=== PATIENT | female | born 1970 | race Caucasian/White ===

== ENCOUNTER 2022-04-11 20:35 | Inpatient (IN) | payer BC ==
[2022-04-11] MEDS ORDERED: Ondansetron PF 4 MG/2 ML Vial ONE (20:42)
[2022-04-11] MEDS ORDERED: CEFAZOLIN 1 GM VIAL ONE ×2 (20:42)
[2022-04-11] MEDS ORDERED: Boostrix 0.5 ML (Tdap) VIAL (>/=7 yrs of age) ONE (20:42)
[2022-04-11] MEDS ORDERED: Morphine 4 MG/ML VIAL ONE (20:42)
[2022-04-11 21:23] LABS: #Eosinphils 0.1 thou/uL (0.0-0.7); #Lymphocytes 3.6 thou/uL (1.20-3.40); #Monocytes 0.4 thou/uL (0.11-0.59); #Neutrophils 3.5 thou/uL (1.40-6.50); %Basophils 0.4 % (0.0-1.0); %Eosinophils 1.8 % (0.0-10.0); %Monocytes 5.3 % (0.0-10.0); %Neutrophils 45.4 % (42.0-75.0); Hemoglobin 14.5 g/dL (12.0-16.0); Mean Platelet Volume 7.1 fL (7.4-10.4); Platelet Count 248 10x3/uL (130-400); RBC Distribution Width 11.8 % (11.5-14.5); Red Blood Cell (RBC) Count 4.27 mill/uL (4.20-5.40); White Blood Cell (WBC) Count 7.7 10x3/uL (4.8-10.8)
[2022-04-11] MEDS ORDERED: Ketamine 50 MG/ML (10ML VIAL) ONE (21:23)
[2022-04-11 21:37] LABS: INR-International Normal Ratio 0.8; PTT 27.1 sec (22.9-36.1); Prothrombin Time 11.8 sec (12.0-14.7)
[2022-04-11 21:44] LABS: ALT (SGPT) 33 U/L (8-55); AST (SGOT) 70 U/L (5-34); Albumin 4.2 g/dL (3.5-5.0); Alkaline Phosphatase 100 U/L (40-110); Anion Gap 17 mmol/L (10-20); BUN (Urea Nitrogen) 15 mg/dL (9.8-20.1); Bilirubin, Total 0.3 mg/dL (0.2-1.2); Calc. Creatinine Clearance 0 mL/min (70-130); Calcium 8.9 mg/dL (7.8-10.44); Carbon Dioxide 17 mmol/L (22-29); Chloride 107 mmol/L (98-107); Estimated GFR 99; Globulin 3.1 g/dL (2.4-3.5); Glucose 93 mg/dL (70-105); Potassium 3.5 mmol/L (3.5-5.1); Protein, Total 7.3 g/dL (6.0-8.3); Sodium 137 mmol/L (136-145)
[2022-04-11] MEDS ORDERED: Morphine 2 MG/ML VIAL SLOW IVP PRN (21:59)
[2022-04-11] MEDS ORDERED: Ondansetron ODT 4 MG TAB PO PRN (21:59)
[2022-04-11] MEDS ORDERED: Dextrose 5% in Water 1,000 ML IV PRN (21:59)
[2022-04-11] MEDS ORDERED: TETANUS, DIPHTHERIA TOX,ADULT (TDVAX) 0.5 ML VIAL IM ONE (21:59)
[2022-04-11] MEDS ORDERED: Ondansetron PF 4 MG/2 ML Vial IVP PRN (21:59)
[2022-04-11] MEDS ORDERED: Dextrose 50% Abboject 50 ML SYRINGE SLOW IVP PRN (21:59)
[2022-04-11] MEDS ORDERED: hydrALAZINE 20 MG/ML VIAL ONE (22:22)
[2022-04-11] MEDS: Morphine 4 MG/ML VIAL SLOW IVP PRN (23:30)
[2022-04-11 23:46] VITALS: BMI 44.4
[2022-04-12] MEDS: Gabapentin 100 MG CAP PO SCH ×4 (01:11→22:05)
[2022-04-12] MEDS: Sodium Chloride 0.9% 1,000 ML IV SCH ×2 (01:11→06:45)
[2022-04-12] MEDS: Acetaminophen 500 MG TAB PO SCH ×5 (01:12→18:21)
[2022-04-12] MEDS: Ketorolac Tromethamine 30 MG/ML VIAL IVP SCH ×2 (01:12→05:15)
[2022-04-12] MEDS: traMADol HCl 50 MG TAB PO SCH ×4 (01:13→18:20)
[2022-04-12] MEDS: Morphine 4 MG/ML VIAL SLOW IVP PRN ×5 (01:40→22:06)
[2022-04-12 02:00] LABS: SARS-CoV-2 NAA Rapid Test Not Detected (NotDetected)
[2022-04-12] MEDS: CEFAZOLIN 2 GM in Sodium Chloride 0.9% 100 ML IVPB SCH ×3 (05:13→22:05)
[2022-04-12 06:34] LABS: #Lymphocytes 1.8 thou/uL (1.20-3.40); #Monocytes 0.5 thou/uL (0.11-0.59); #Neutrophils 5.5 thou/uL (1.40-6.50); %Basophils 0.3 % (0.0-1.0); %Eosinophils 0.5 % (0.0-10.0); %Lymphocytes 22.5 % (21.0-51.0); %Monocytes 6.8 % (0.0-10.0); %Neutrophils 69.9 % (42.0-75.0); Hemoglobin 11.8 g/dL (12.0-16.0); Mean Corpuscular HGB CONC 33.2 g/dL (32.0-36.0); Mean Corpuscular Hemoglobin 33.4 pg (27.0-31.0); Mean Platelet Volume 7.3 fL (7.4-10.4); Platelet Count 247 10x3/uL (130-400); RBC Distribution Width 11.8 % (11.5-14.5); Red Blood Cell (RBC) Count 3.52 mill/uL (4.20-5.40); White Blood Cell (WBC) Count 7.9 10x3/uL (4.8-10.8)
[2022-04-12 07:00] LABS: Anion Gap 11 mmol/L (10-20); BUN (Urea Nitrogen) 10 mg/dL (9.8-20.1); Calc. Creatinine Clearance 218 mL/min (70-130); Calcium 7.9 mg/dL (7.8-10.44); Carbon Dioxide 22 mmol/L (22-29); Chloride 108 mmol/L (98-107); Estimated GFR 110; Glucose 96 mg/dL (70-105); Magnesium 1.9 mg/dL (1.6-2.6); Sodium 137 mmol/L (136-145)
[2022-04-12] MEDS ORDERED: Gabapentin 100 MG CAP PO SCH (08:15)
[2022-04-12] MEDS ORDERED: Famotidine/PF 20 mg/2ml Vial SLOW IVP SCH (09:00)
[2022-04-12] MEDS ORDERED: CEFAZOLIN 2 GM in Sodium Chloride 0.9% 100 ML IVPB SCH ×2 (09:30→14:30)
[2022-04-12] MEDS: Cyclobenzaprine 10 MG TAB PO PRN (09:50)
[2022-04-12] MEDS: Thiamine 100 MG TAB PO SCH (09:57)
[2022-04-12] MEDS: Folic Acid 1 MG TAB PO SCH (09:57)
[2022-04-12] MEDS: Multivitamin W/ Minerals 1 TAB PO SCH (09:57)
[2022-04-12] MEDS ORDERED: fentaNYL PF 100 MCG/2 ML SYRINGE ONE (13:53)
[2022-04-12] MEDS ORDERED: Sodium Chloride 0.9% 100 ML ONE (14:01)
[2022-04-12] MEDS ORDERED: CEFAZOLIN 2 GM VIAL ONE (14:01)
[2022-04-12] MEDS ORDERED: ePHEDrine 50 MG/ML VIAL ONE (14:14)
[2022-04-12] MEDS ORDERED: Phenylephrine 10 MG/ML VIAL ONE (14:14)
[2022-04-12] MEDS ORDERED: PROPOFOL 200 MG/20 ML VIAL ONE (14:14)
[2022-04-12] MEDS ORDERED: Bupivacaine HCl 0.5%/Epinephrine 1:200,000/PF 30 ml Vial ONE (14:41)
[2022-04-12] MEDS ORDERED: FENTANYL 50 MCG/ML 1 ML VIAL ONE ×2 (16:22→16:56)
[2022-04-12] MEDS ORDERED: HYDROmorphone 0.5 MG/0.5 ML SYRINGE ONE (16:23)
[2022-04-12] MEDS ORDERED: Meperidine HCl/PF 25 MG/ML VIAL ONE (16:25)
[2022-04-12] MEDS: Ferrous Sulfate 325 MG TAB PO SCH (18:17)
[2022-04-12] MEDS: Polyethylene Glycol 3350 17 GM Packet PO SCH (18:20)
[2022-04-12] MEDS: Senokot S 8.6-50 MG TAB PO SCH ×2 (18:20→22:05)
[2022-04-12] MEDS: Oxazepam 10 MG CAP PO SCH ×2 (18:21→22:06)
[2022-04-12] MEDS: Ascorbic Acid 500 mg Chewable Tablet PO SCH (22:05)
[2022-04-13] MEDS: traMADol HCl 50 MG TAB PO SCH ×4 (00:28→17:33)
[2022-04-13] MEDS: rOPINIRole HCl 1 MG TAB PO SCH ×2 (00:28→21:02)
[2022-04-13] MEDS: Acetaminophen 500 MG TAB PO SCH ×2 (00:29→06:20)
[2022-04-13] MEDS: Sodium Chloride 0.9% 1,000 ML IV SCH (00:30)
[2022-04-13] MEDS: Morphine 4 MG/ML VIAL SLOW IVP PRN ×2 (00:31→06:21)
[2022-04-13 05:55] LABS: #Lymphocytes 0.7 thou/uL (1.20-3.40); #Monocytes 0.5 thou/uL (0.11-0.59); #Neutrophils 6.8 thou/uL (1.40-6.50); %Eosinophils 0.1 % (0.0-10.0); %Monocytes 6.7 % (0.0-10.0); %Neutrophils 84.3 % (42.0-75.0); Mean Corpuscular HGB CONC 32.2 g/dL (32.0-36.0); Mean Corpuscular Hemoglobin 32.8 pg (27.0-31.0); Platelet Count 227 10x3/uL (130-400); RBC Distribution Width 11.8 % (11.5-14.5); Red Blood Cell (RBC) Count 3.06 mill/uL (4.20-5.40); White Blood Cell (WBC) Count 8.1 10x3/uL (4.8-10.8)
[2022-04-13 06:18] LABS: Anion Gap 9 mmol/L (10-20); BUN (Urea Nitrogen) 9 mg/dL (9.8-20.1); Calc. Creatinine Clearance 200 mL/min (70-130); Calcium 8.6 mg/dL (7.8-10.44); Carbon Dioxide 25 mmol/L (22-29); Chloride 105 mmol/L (98-107); Estimated GFR 108; Glucose 120 mg/dL (70-105); Iron 39 ug/dL (50-170); Magnesium 2.1 mg/dL (1.6-2.6); Potassium 4.1 mmol/L (3.5-5.1); Sodium 135 mmol/L (136-145)
[2022-04-13 06:19] LABS: Phosphorus 3.3 mg/dL (2.3-4.7)
[2022-04-13] MEDS: CEFAZOLIN 2 GM in Sodium Chloride 0.9% 100 ML IVPB SCH ×3 (06:19→21:02)
[2022-04-13] MEDS: Oxazepam 10 MG CAP PO SCH ×3 (06:20→21:02)
[2022-04-13] MEDS: Gabapentin 100 MG CAP PO SCH ×3 (06:20→21:02)
[2022-04-13] MEDS ORDERED: Morphine 4 MG/ML VIAL SLOW IVP PRN (07:48)
[2022-04-13] MEDS ORDERED: PHOS-NAK 1 PKT PACK PO SCH (08:00)
[2022-04-13] MEDS ORDERED: Enoxaparin Sodium 40 MG/0.4 ML SYRINGE SC SCH (09:00)
[2022-04-13] MEDS: Polyethylene Glycol 3350 17 GM Packet PO SCH (10:01)
[2022-04-13] MEDS: Thiamine 100 MG TAB PO SCH (10:03)
[2022-04-13] MEDS: Senokot S 8.6-50 MG TAB PO SCH ×2 (10:03→21:02)
[2022-04-13] MEDS: Folic Acid 1 MG TAB PO SCH (10:03)
[2022-04-13] MEDS: Multivitamin W/ Minerals 1 TAB PO SCH (10:04)
[2022-04-13] MEDS: Ascorbic Acid 500 mg Chewable Tablet PO SCH ×2 (10:04→21:02)
[2022-04-13] MEDS: Enoxaparin Sodium 40 MG/0.4 ML SYRINGE SC SCH ×2 (10:04→21:01)
[2022-04-13] MEDS: Ferrous Sulfate 325 MG TAB PO SCH ×2 (10:04→17:31)
[2022-04-13] MEDS: Lansoprazole 15 MG/5 ML (BATCHED)UDCUP PO SCH (10:08)
[2022-04-13] MEDS ORDERED: Acetaminophen/Codeine 30-300mg Tablet PO PRN (10:19)
[2022-04-13] MEDS: cloNIDine 0.1 MG TAB PO SCH ×2 (11:42→17:33)
[2022-04-13] MEDS: Acetaminophen 325 MG TAB PO SCH ×2 (11:51→17:32)
[2022-04-13] MEDS ORDERED: Acetaminophen 500 MG TAB PO SCH (12:00)
[2022-04-13] MEDS: Cyclobenzaprine 10 MG TAB PO PRN (21:03)
[2022-04-14] MEDS: Acetaminophen 325 MG TAB PO SCH ×2 (00:47→05:39)
[2022-04-14] MEDS: cloNIDine 0.1 MG TAB PO SCH ×3 (00:47→11:38)
[2022-04-14] MEDS: traMADol HCl 50 MG TAB PO SCH ×3 (00:48→11:35)
[2022-04-14] MEDS: CEFAZOLIN 2 GM in Sodium Chloride 0.9% 100 ML IVPB SCH ×2 (05:39→11:38)
[2022-04-14] MEDS: Gabapentin 100 MG CAP PO SCH ×2 (05:39→14:39)
[2022-04-14] MEDS: Oxazepam 10 MG CAP PO SCH ×2 (05:40→14:39)
[2022-04-14 06:25] LABS: #Eosinphils 0.1 thou/uL (0.0-0.7); #Lymphocytes 2.5 thou/uL (1.20-3.40); #Monocytes 0.6 thou/uL (0.11-0.59); #Neutrophils 5.4 thou/uL (1.40-6.50); %Basophils 0.2 % (0.0-1.0); %Eosinophils 1.3 % (0.0-10.0); %Lymphocytes 28.9 % (21.0-51.0); %Monocytes 6.9 % (0.0-10.0); %Neutrophils 62.7 % (42.0-75.0); Hemoglobin 8.6 g/dL (12.0-16.0); Mean Corpuscular HGB CONC 32.6 g/dL (32.0-36.0); Mean Corpuscular Hemoglobin 33.2 pg (27.0-31.0); Mean Platelet Volume 7.5 fL (7.4-10.4); Platelet Count 230 10x3/uL (130-400); RBC Distribution Width 11.9 % (11.5-14.5); White Blood Cell (WBC) Count 8.6 10x3/uL (4.8-10.8)
[2022-04-14 07:24] LABS: Anion Gap 11 mmol/L (10-20); BUN (Urea Nitrogen) 10 mg/dL (9.8-20.1); Calc. Creatinine Clearance 207 mL/min (70-130); Calcium 8.4 mg/dL (7.8-10.44); Carbon Dioxide 28 mmol/L (22-29); Chloride 101 mmol/L (98-107); Estimated GFR 108; Glucose 94 mg/dL (70-105); Magnesium 1.9 mg/dL (1.6-2.6); Phosphorus 2.3 mg/dL (2.3-4.7); Sodium 136 mmol/L (136-145)
[2022-04-14] MEDS ORDERED: Acetaminophen/Codeine 30-300mg Tablet PO PRN (08:40)
[2022-04-14] MEDS: Lansoprazole 15 MG/5 ML (BATCHED)UDCUP PO SCH (09:39)
[2022-04-14] MEDS: Ascorbic Acid 500 mg Chewable Tablet PO SCH (09:39)
[2022-04-14] MEDS: Multivitamin W/ Minerals 1 TAB PO SCH (09:39)
[2022-04-14] MEDS: Senokot S 8.6-50 MG TAB PO SCH (09:39)
[2022-04-14] MEDS: Folic Acid 1 MG TAB PO SCH (09:40)
[2022-04-14] MEDS: Enoxaparin Sodium 40 MG/0.4 ML SYRINGE SC SCH (09:40)
[2022-04-14] MEDS: Thiamine 100 MG TAB PO SCH (09:40)
[2022-04-14] MEDS: Polyethylene Glycol 3350 17 GM Packet PO SCH (09:40)
[2022-04-14] MEDS: Ferrous Sulfate 325 MG TAB PO SCH (09:40)
[2022-04-14] MEDS ORDERED: FLU VACC QS2022-23(6MOS UP)/PF 60 MCG/0.5 ML SYRINGE IM ONE (11:22)
[2022-04-14] MEDS ORDERED: Acetaminophen/Codeine 30-300mg Tablet PO SCH ×3 (12:00)
[2022-04-14 15:49] VITALS: BP 95/64; TEMP 98.7
== END 2022-04-14 16:45 | DRG 481 ==
LOC: ERS 20:35 → SURG B 22:08
PROVIDERS: ADMIT Surgery; ATTEND Surgery
PROC: 0QSB04Z Reposition Right Lower Femur with Internal Fixation Device, Open Approach (ICD-10-PCS; principal; 2022-04-12)
DX: S72.451B Displaced supracondylar fracture without intracondylar extension of lower end of right femur, initial encounter for open fracture type I or II (principal); Z20.822 Contact with and (suspected) exposure to COVID-19; Z23 Encounter for immunization; Z68.41 Body mass index [BMI] 40.0-44.9, adult; F10.129 Alcohol abuse with intoxication, unspecified; Y90.6 Blood alcohol level of 120-199 mg/100 ml; G25.81 Restless legs syndrome; W18.39XA Other fall on same level, initial encounter; E66.9 Obesity, unspecified; Z87.11 Personal history of peptic ulcer disease; Z90.49 Acquired absence of other specified parts of digestive tract; Z98.890 Other specified postprocedural states; Z88.0 Allergy status to penicillin
CPT/HCPCS: 27510; 36415; 71045; 80048; 80053; 80307; 83540; 83735; 84100; 85025; 85520; 85610; 85730; 86850; 86900; 86901; 90471; 90686; 90715; 93005; 93010; 96374; 96375; 99156; C1713; G0008; G0390; J0360; J0690; J1170; J1650; J1885; J2175; J2270; J2370; J2405; J2704; J3010; J3490; J7050; Q0162; S0028

== ENCOUNTER 2022-07-14 05:50 | Inpatient (IN) | payer BC ==
[2022-07-14] MEDS ORDERED: fentaNYL PF 100 MCG/2 ML SYRINGE ONE ×2 (06:49→09:31)
[2022-07-14] MEDS ORDERED: Levofloxacin 500 mg/D5W 100 ml Premix Bag ONE (07:11)
[2022-07-14] MEDS ORDERED: Clindamycin/D5W 900 mg/50 ml Premix Bag ONE (07:11)
[2022-07-14] MEDS ORDERED: Midazolam HCl 2 mg/2 ml Vial ONE (07:20)
[2022-07-14] MEDS ORDERED: Famotidine/PF 20 mg/2ml Vial ONE (07:20)
[2022-07-14] MEDS ORDERED: Dexamethasone 20 MG/5 ML VIAL ONE (07:25)
[2022-07-14] MEDS ORDERED: Ondansetron PF 4 MG/2 ML Vial ONE (07:25)
[2022-07-14] MEDS ORDERED: PHENYLEPHRINE-NS 100 MCG/ML 10 ML SYRINGE ONE ×2 (07:25→08:01)
[2022-07-14] MEDS ORDERED: Ketorolac Tromethamine 30 MG/ML VIAL ONE (07:25)
[2022-07-14] MEDS ORDERED: Lidocaine 1% PF 5 ML VIAL ONE (07:25)
[2022-07-14] MEDS ORDERED: PROPOFOL 200 MG/20 ML VIAL ONE (07:25)
[2022-07-14] MEDS ORDERED: Rocuronium Bromide 10 MG/ML (10ML VIAL) ONE (07:25)
[2022-07-14] MEDS ORDERED: HYDROmorphone 2 MG/ML VIAL SLOW IVP PRN (07:43)
[2022-07-14] MEDS ORDERED: Promethazine HCl 25 MG/ML VIAL IM PRN ×2 (07:43→12:00)
[2022-07-14] MEDS ORDERED: Meperidine HCl/PF 25 MG/ML VIAL SLOW IVP PRN (07:43)
[2022-07-14] MEDS ORDERED: SUGAMMADEX SODIUM 200 MG/2 ML VIAL ONE (09:30)
[2022-07-14] MEDS ORDERED: HYDROcodone/Acetaminophen 10/325 mg Tablet PO PRN (09:34)
[2022-07-14] MEDS ORDERED: Ondansetron PF 4 MG/2 ML Vial IVP PRN ×2 (09:34→12:00)
[2022-07-14] MEDS ORDERED: PHARMACY TO RENALLY ADJUST ABX FS SCH (09:45)
[2022-07-14] MEDS ORDERED: HYDROmorphone 2 MG/ML VIAL ONE (09:49)
[2022-07-14] MEDS ORDERED: Promethazine HCl 25 MG/ML VIAL ONE (10:00)
[2022-07-14] MEDS ORDERED: HYDROmorphone 0.5 MG/0.5 ML SYRINGE ONE (10:06)
[2022-07-14] MEDS ORDERED: Fentanyl 100 MCG/2 ML VIAL ONE (10:43)
[2022-07-14] MEDS ORDERED: Zolpidem Tartrate 5 MG TAB PO PRN (12:00)
[2022-07-14] MEDS ORDERED: Fentanyl CADD 100 ML IVPB SCH (12:00)
[2022-07-14] MEDS ORDERED: diphenhydrAMINE 50 MG/ML VIAL ONE (14:26)
[2022-07-14] MEDS: diphenhydrAMINE 50 MG/ML VIAL IM/IV PRN ×3 (14:31→20:51)
[2022-07-14 15:49] VITALS: BMI 42.7
[2022-07-14] MEDS: Clindamycin/D5W 900 MG in Premix Bag 1 BAG IVPB SCH ×2 (16:46→23:33)
[2022-07-14] MEDS: Gabapentin 300 MG CAP PO SCH (20:50)
[2022-07-14] MEDS: rOPINIRole HCl 2 MG TAB PO SCH (20:50)
[2022-07-15] MEDS: diphenhydrAMINE 50 MG/ML VIAL IM/IV PRN ×4 (00:10→11:12)
[2022-07-15 06:35] LABS: #Monocytes 0.7 thou/uL (0.11-0.59); #Neutrophils 5.3 thou/uL (1.40-6.50); %Basophils 0.2 % (0.0-1.0); %Eosinophils 0.3 % (0.0-10.0); %Lymphocytes 13.9 % (21.0-51.0); %Monocytes 9.8 % (0.0-10.0); %Neutrophils 75.7 % (42.0-75.0); Hemoglobin 10.3 g/dL (12.0-16.0); Mean Corpuscular HGB CONC 32.5 g/dL (32.0-36.0); Mean Corpuscular Hemoglobin 31.9 pg (27.0-31.0); Mean Corpuscular Volume 98.4 fl (78.0-98.0); Mean Platelet Volume 7.2 fL (7.4-10.4); Platelet Count 256 10x3/uL (130-400); RBC Distribution Width 14.1 % (11.5-14.5); Red Blood Cell (RBC) Count 3.24 mill/uL (4.20-5.40)
[2022-07-15] MEDS: Gabapentin 300 MG CAP PO SCH ×2 (08:36→20:16)
[2022-07-15] MEDS: Clindamycin/D5W 900 MG in Premix Bag 1 BAG IVPB SCH ×3 (08:36→23:30)
[2022-07-15] MEDS: DULoxetine 30 MG CAP PO SCH (08:36)
[2022-07-15] MEDS: Ketorolac Tromethamine 30 MG/ML VIAL IVP SCH ×3 (11:08→23:56)
[2022-07-15] MEDS: HYDROcodone/Acetaminophen 10/325 mg Tablet PO PRN ×3 (11:08→20:14)
[2022-07-15] MEDS: Morphine 2 MG/ML VIAL SLOW IVP PRN ×3 (11:10→21:30)
[2022-07-15] MEDS: diphenhydrAMINE 25 MG CAP PO PRN ×2 (14:21→20:13)
[2022-07-15] MEDS: rOPINIRole HCl 2 MG TAB PO SCH (20:13)
[2022-07-16] MEDS: Ketorolac Tromethamine 30 MG/ML VIAL IVP SCH ×3 (05:02→18:41)
[2022-07-16] MEDS: diphenhydrAMINE 25 MG CAP PO PRN ×2 (05:02→08:21)
[2022-07-16 08:09] LABS: #Eosinphils 0.2 thou/uL (0.0-0.7); #Lymphocytes 1.7 thou/uL (1.20-3.40); #Monocytes 0.6 thou/uL (0.11-0.59); #Neutrophils 4.8 thou/uL (1.40-6.50); %Basophils 0.6 % (0.0-1.0); %Eosinophils 2.7 % (0.0-10.0); %Lymphocytes 23.4 % (21.0-51.0); %Monocytes 8.3 % (0.0-10.0); Hemoglobin 8.8 g/dL (12.0-16.0); Mean Corpuscular HGB CONC 32.4 g/dL (32.0-36.0); Mean Corpuscular Hemoglobin 31.8 pg (27.0-31.0); Mean Corpuscular Volume 98.1 fl (78.0-98.0); Mean Platelet Volume 7.3 fL (7.4-10.4); Platelet Count 236 10x3/uL (130-400); RBC Distribution Width 14.1 % (11.5-14.5); Red Blood Cell (RBC) Count 2.78 mill/uL (4.20-5.40); White Blood Cell (WBC) Count 7.4 10x3/uL (4.8-10.8)
[2022-07-16] MEDS: Clindamycin/D5W 900 MG in Premix Bag 1 BAG IVPB SCH ×2 (08:20→15:03)
[2022-07-16] MEDS: Gabapentin 300 MG CAP PO SCH ×2 (08:20→20:04)
[2022-07-16] MEDS: DULoxetine 30 MG CAP PO SCH (08:21)
[2022-07-16] MEDS: HYDROcodone/Acetaminophen 10/325 mg Tablet PO PRN ×2 (08:21→15:03)
[2022-07-16] MEDS: Morphine 2 MG/ML VIAL SLOW IVP PRN ×2 (10:27→23:25)
[2022-07-16] MEDS: tiZANidine HCl 4 MG TAB PO SCH ×2 (15:03→20:34)
[2022-07-16] MEDS ORDERED: Naloxone HCl 0.4 mg/ml Vial ONE (16:26)
[2022-07-16] MEDS: Sodium Chloride 0.9% 1,000 ML IV SCH ×2 (17:55→23:27)
[2022-07-16] MEDS ORDERED: Acetaminophen 500 MG TAB PO PRN (18:13)
[2022-07-16] MEDS ORDERED: traMADol HCl 50 MG TAB PO PRN (18:13)
[2022-07-16 18:15] LABS: #Eosinphils 0.1 thou/uL (0.0-0.7); #Lymphocytes 1.2 thou/uL (1.20-3.40); #Monocytes 0.5 thou/uL (0.11-0.59); %Basophils 0.3 % (0.0-1.0); %Eosinophils 2.4 % (0.0-10.0); %Lymphocytes 20.8 % (21.0-51.0); %Neutrophils 68.5 % (42.0-75.0); Hemoglobin 7.1 g/dL (12.0-16.0); Mean Corpuscular HGB CONC 33.3 g/dL (32.0-36.0); Mean Corpuscular Hemoglobin 32.5 pg (27.0-31.0); Mean Corpuscular Volume 97.6 fl (78.0-98.0); Mean Platelet Volume 7.3 fL (7.4-10.4); Platelet Count 180 10x3/uL (130-400); RBC Distribution Width 14.2 % (11.5-14.5); Red Blood Cell (RBC) Count 2.18 mill/uL (4.20-5.40); White Blood Cell (WBC) Count 5.9 10x3/uL (4.8-10.8)
[2022-07-16 18:33] LABS: Troponin I Less than 0.010 ng/mL (< 0.028)
[2022-07-16 18:42] LABS: ALT (SGPT) 15 U/L (8-55); AST (SGOT) 17 U/L (5-34); Albumin 2.9 g/dL (3.5-5.0); Alkaline Phosphatase 61 U/L (40-110); Anion Gap 11 mmol/L (10-20); BUN (Urea Nitrogen) 19 mg/dL (9.8-20.1); Bilirubin, Total 0.4 mg/dL (0.2-1.2); Calc. Creatinine Clearance 171 mL/min (70-130); Calcium 7.7 mg/dL (7.8-10.44); Carbon Dioxide 23 mmol/L (22-29); Chloride 98 mmol/L (98-107); Estimated GFR 104; Globulin 1.9 g/dL (2.4-3.5); Glucose 105 mg/dL (70-105); Magnesium 1.8 mg/dL (1.6-2.6); Potassium 4.2 mmol/L (3.5-5.1); Protein, Total 4.8 g/dL (6.0-8.3); Sodium 128 mmol/L (136-145)
[2022-07-16] MEDS ORDERED: Magnesium 2 GM/50 ML(in water) 2 GM in Premix Bag 1 BAG IVPB SCH (19:00)
[2022-07-16] MEDS: Pantoprazole 40 MG VIAL IVP SCH (20:04)
[2022-07-16] MEDS: rOPINIRole HCl 2 MG TAB PO SCH (20:04)
[2022-07-16] MEDS: Polyethylene Glycol 3350 17 GM Packet PO SCH (20:34)
[2022-07-16 22:11] LABS: Hemoglobin 7.4 g/dL (12.0-16.0)
[2022-07-16 22:45] LABS: Bacteria/HPF None Seen HPF (None Seen); Bilirubin Negative (Negative); Blood, Urine Trace (Negative); CAUTI Indications for Culture Alt mental st,lethar; Clarity Clear (Clear); Glucose, Urine (Dipstick) Normal (Negative); Ketone, Urine Negative (Negative); Leukocyte Negative Leu/uL (Negative); Nitrite Negative (Negative); Protein, Urine (Dipstick) Negative (Neg-Trace); RBC/HPF 0-3 HPF (0-3); Specific Gravity, Urine 1.006 (1.002-1.036); Squamous Epithelial 0-3 HPF (0-3); Urobilinogen Normal mg/dL (Less than 2); WBC/HPF 0-3 HPF (0-3)
[2022-07-16 22:47] LABS: Urine Culture Reflex No No
[2022-07-17] MEDS: HYDROcodone/Acetaminophen 10/325 mg Tablet PO PRN ×3 (03:12→14:47)
[2022-07-17 08:15] LABS: #Eosinphils 0.1 thou/uL (0.0-0.7); #Lymphocytes 1.5 thou/uL (1.20-3.40); #Monocytes 0.4 thou/uL (0.11-0.59); #Neutrophils 3.3 thou/uL (1.40-6.50); %Basophils 0.3 % (0.0-1.0); %Lymphocytes 27.2 % (21.0-51.0); %Monocytes 8.1 % (0.0-10.0); %Neutrophils 62.4 % (42.0-75.0); Hemoglobin 7.8 g/dL (12.0-16.0); Mean Corpuscular HGB CONC 32.5 g/dL (32.0-36.0); Mean Corpuscular Hemoglobin 31.8 pg (27.0-31.0); Mean Platelet Volume 6.8 fL (7.4-10.4); Platelet Count 245 10x3/uL (130-400); RBC Distribution Width 14.1 % (11.5-14.5); Red Blood Cell (RBC) Count 2.44 mill/uL (4.20-5.40); White Blood Cell (WBC) Count 5.3 10x3/uL (4.8-10.8)
[2022-07-17] MEDS: Pantoprazole 40 MG VIAL IVP SCH ×2 (08:15→21:00)
[2022-07-17] MEDS: DULoxetine 30 MG CAP PO SCH (08:15)
[2022-07-17] MEDS: Gabapentin 300 MG CAP PO SCH ×2 (08:15→20:56)
[2022-07-17] MEDS: Polyethylene Glycol 3350 17 GM Packet PO SCH ×2 (08:16→21:01)
[2022-07-17] MEDS: tiZANidine HCl 4 MG TAB PO SCH ×3 (08:31→20:56)
[2022-07-17 10:07] LABS: Anion Gap 12 mmol/L (10-20); BUN (Urea Nitrogen) 8 mg/dL (9.8-20.1); Calc. Creatinine Clearance 203 mL/min (70-130); Calcium 8.2 mg/dL (7.8-10.44); Carbon Dioxide 26 mmol/L (22-29); Chloride 102 mmol/L (98-107); Estimated GFR 109; Glucose 85 mg/dL (70-105); Magnesium 2.1 mg/dL (1.6-2.6); Potassium 4.2 mmol/L (3.5-5.1); Sodium 136 mmol/L (136-145)
[2022-07-17] MEDS: traMADol HCl 50 MG TAB PO PRN ×2 (11:20→18:18)
[2022-07-17] MEDS: Sodium Chloride 0.9% 1,000 ML IV SCH (11:21)
[2022-07-17] MEDS ORDERED: Senokot 8.6 MG TAB PO PRN (16:08)
[2022-07-17] MEDS: rOPINIRole HCl 2 MG TAB PO SCH (20:56)
[2022-07-18] MEDS: Sodium Chloride 0.9% 1,000 ML IV SCH ×2 (00:52→08:40)
[2022-07-18] MEDS: traMADol HCl 50 MG TAB PO PRN ×2 (05:03→12:23)
[2022-07-18] MEDS: DULoxetine 30 MG CAP PO SCH (08:39)
[2022-07-18] MEDS: Polyethylene Glycol 3350 17 GM Packet PO SCH (08:39)
[2022-07-18] MEDS: HYDROcodone/Acetaminophen 10/325 mg Tablet PO PRN ×2 (08:39→14:57)
[2022-07-18] MEDS: Gabapentin 300 MG CAP PO SCH (08:39)
[2022-07-18] MEDS: Pantoprazole 40 MG VIAL IVP SCH (08:40)
[2022-07-18 16:03] VITALS: BP 126/86; TEMP 98.4
== END 2022-07-18 15:45 | disposition home or self-care (01) | DRG 481 ==
LOC: SDC 05:50 → SURG A 09:40
PROVIDERS: ADMIT Orthopaedic Surgery; ATTEND Orthopaedic Surgery
PROC: 0QUB07Z Supplement Right Lower Femur with Autologous Tissue Substitute, Open Approach (ICD-10-PCS; principal; 2022-07-14)
PROC: 0QBC0ZZ Excision of Left Lower Femur, Open Approach (ICD-10-PCS; 2022-07-14)
DX: S72.401K Unspecified fracture of lower end of right femur, subsequent encounter for closed fracture with nonunion (principal); E87.1 Hypo-osmolality and hyponatremia; Z68.41 Body mass index [BMI] 40.0-44.9, adult; F32.A Depression, unspecified; M79.7 Fibromyalgia; D50.9 Iron deficiency anemia, unspecified; G25.81 Restless legs syndrome; I10 Essential (primary) hypertension; F90.9 Attention-deficit hyperactivity disorder, unspecified type; E66.01 Morbid (severe) obesity due to excess calories; Z90.49 Acquired absence of other specified parts of digestive tract; Z98.84 Bariatric surgery status; Z79.899 Other long term (current) drug therapy; K27.9 Peptic ulcer, site unspecified, unspecified as acute or chronic, without hemorrhage or perforation; I95.2 Hypotension due to drugs; T42.8X5A Adverse effect of antiparkinsonism drugs and other central muscle-tone depressants, initial encounter; T43.215A Adverse effect of selective serotonin and norepinephrine reuptake inhibitors, initial encounter
CPT/HCPCS: 36415; 80048; 80053; 81001; 83605; 83735; 83880; 84443; 84484; 85025; 87070; 87205; C1713; C9113; J1100; J1170; J1200; J1885; J1956; J2250; J2272; J2310; J2405; J2550; J2704; J3010; J3475; J3490; J7050; S0028

== ENCOUNTER 2022-11-23 11:22 | Outpatient (CLI) | payer BC | END 2022-11-23 11:23 | disposition home or self-care (01) | LOC: SCSMRI 11:22 | PROVIDERS: ATTEND Orthopaedic Surgery | DX: S72.491E Other fracture of lower end of right femur, subsequent encounter for open fracture type I or II with routine healing (principal) ==